=== PATIENT | female | born 1980 | race Two or more races ===

== ENCOUNTER 2017-09-15 14:28 | Emergency (ER) | payer SELFPAY ==
[~2017-09-15] VITALS: Ht 172.7 cm; Wt 90.7 kg
[2017-09-15 15:18] LABS: Basophils # (auto) 0 uL; Basophils % (auto) 0.4 % (0.0-2.0); Eosinophils # (auto) 0.2 uL; Hemoglobin 11.1 g/dL (12.2-16.2); Mean Corpuscular Hemoglobin 23.1 pg (28.0-32.0); Mean Corpuscular Hgb Conc. 31.3 g/dL (32.0-36.0); Neutrophils # (auto) 4.9 uL; Nucleated Red Blood Cells % 0.2 %; White Blood Cell 8.1 10^3/uL (4.4-10.8)
[2017-09-15 15:20] LABS: Eosinophils % (auto) 2.5 % (0.0-7.0); Hematocrit 35.5 % (36.0-46.0); Lymphocytes # (auto) 2.3 uL; Lymphocytes % (auto) 28.8 % (10.0-50.0); Mean Corpuscular Volume 73.6 fL (80.0-100.0); Monocytes # (auto) 0.6 uL; Neutrophils % (auto) 60.3 % (37.0-80.0); Platelet Count (auto) 359 10^3/uL (140-450); Red Blood Cells 4.82 10^6/uL (4.0-5.20)
[2017-09-15 15:21] LABS: Red Cell Distribution Width 20.2 % (11.8-14.3)
[2017-09-15 15:39] LABS: Alanine Aminotransferase 41 U/L (13-56); Albumin 3.8 g/dL (3.4-5.0); Alkaline Phosphatase 97 U/L (45-117); Anion Gap 7 (5-15); Aspartate Aminotransferase 30 U/L (15-37); BUN/Creatinine Ratio 14.7; Bilirubin, Total 0.3 mg/dL (0.2-1.0); Blood Urea Nitrogen 11 mg/dL (7-18); Calcium 8.6 mg/dL (8.5-10.1); Carbon Dioxide 25 mmol/L (21-32); Chloride 107 mmol/L (98-107); GFR African American 113 mL/min; GFR Non-African American 93 mL/min; Glucose 84 mg/dL (74-106); Potassium 4.1 mmol/L (3.5-5.1); Sodium 139 mmol/L (136-145)
[2017-09-15 17:15] VITALS: BP 133/84
== END 2017-09-15 17:38 | disposition home or self-care (01) ==
LOC: ER 14:36
DX: R07.89 Other chest pain (principal); I10 Essential (primary) hypertension; F17.210 Nicotine dependence, cigarettes, uncomplicated
CPT/HCPCS: 36415; 71046; 80053; 84484; 85025; 93005

== ENCOUNTER 2020-05-12 10:44 | Emergency (ER) | payer MEDICAID, OTHER ==
[~2020-05-12] VITALS: Ht 172.7 cm; Wt 97.5 kg
[2020-05-12 10:45] VITALS: BP 157/81
[2020-05-12] MEDS ORDERED: KETOROLAC TROMETH 60MG/2ML VIAL IM ONE (12:30)
== END 2020-05-12 12:46 | disposition home or self-care (01) ==
LOC: ER 10:44
DX: S53.401A Unspecified sprain of right elbow, initial encounter (principal); Y04.8XXA Assault by other bodily force, initial encounter; Y93.89 Activity, other specified; Y92.89 Other specified places as the place of occurrence of the external cause; Y99.8 Other external cause status
CPT/HCPCS: 73080; 96372; 99283; J1885

== ENCOUNTER 2020-06-10 12:49 | Inpatient (IN) | payer MEDICAID ==
[~2020-06-10] VITALS: Ht 172.7 cm; Wt 103.3 kg
[2020-06-10] MEDS ORDERED: PANTOPRAZOLE 40mg/50ML NS AE 50 ML IV ONE (13:15)
[2020-06-10] MEDS ORDERED: PANTOPRAZOLE 40 MG/10 ML VIAL INJ IV ONE (13:15)
[2020-06-10] MEDS ORDERED: PHYTONADIONE (VIT K)10 MG/ML 1ML VIAL SUBCUT ONE (13:45)
[2020-06-10 13:59] LABS: Basophils # (auto) 0 10 ^3/uL (0-0.2); Eosinophils # (auto) 0 10 ^3/uL (0-0.8); Eosinophils % (auto) 0.4 % (0.0-7.0); Lymphocytes # (auto) 2.7 10 ^3/uL (0.4-5.4); Monocytes # (auto) 0.7 10 ^3/uL (0-1.3); Neutrophils # (auto) 6.2 10 ^3/uL (1.6-8.6)
[2020-06-10 14:01] LABS: Basophils % (auto) 0.5 % (0.0-2.0); Hematocrit 20.8 % (36.0-46.0); Mean Corpuscular Hemoglobin 23.1 pg (28.0-32.0); Mean Corpuscular Hgb Conc. 30.8 g/dL (32.0-36.0); Mean Corpuscular Volume 75.1 fL (80.0-100.0); Monocytes % (auto) 7.3 % (0.0-12.0); Neutrophils % (auto) 63.8 % (37.0-80.0); Platelet Count (auto) 180 10^3/uL (140-450); Red Blood Cells 2.77 10^6/uL (4.0-5.20); White Blood Cell 9.7 10^3/uL (4.4-10.8)
[2020-06-10 14:07] LABS: Hemoglobin 6.4 g/dL (12.2-16.2); Red Cell Distribution Width 22.1 % (11.8-14.3)
[2020-06-10 14:14] LABS: INR 1.39 (0.9-1.15); Partial Thromboplastin Time 24.7 sec (23.0-31.2)
[2020-06-10 14:25] LABS: Albumin 2.8 g/dL (3.4-5.0); Calcium 7.9 mg/dL (8.5-10.1); Magnesium 2.1 mg/dL (1.6-2.6); Potassium 3.8 mmol/L (3.5-5.1)
[2020-06-10 14:31] LABS: Bilirubin, Total 1.6 mg/dL (0.2-1.0); Total Protein 7.8 g/dL (6.4-8.2)
[2020-06-10] MEDS ORDERED: ONDANSETRON HCL 4 MG/2 ML VIAL IM ONE (18:00)
[2020-06-10] MEDS ORDERED: PANTOPRAZOLE 40mg/50ML NS AE 50 ML IV PRN (18:00)
[2020-06-10 19:30] VITALS: BP 118/59
[2020-06-10 20:00] VITALS: BP 115/55
[2020-06-10] MEDS ORDERED: MORPHINE SULF INJ 2 MG/ML SYRINGE 1ML IV PRN (20:45)
[2020-06-10] MEDS ORDERED: DOCUSATE SOD 100 MG CAP PO PRN (20:45)
[2020-06-10] MEDS: SODIUM CHLORIDE 0.9% 1,000 ML IV SCH (20:45)
[2020-06-10 21:20] VITALS: BP 116/54
[2020-06-10 21:50] VITALS: BP 108/61
[2020-06-10 22:20] VITALS: BP 114/61
[2020-06-11] VITALS (10 sets, daily range): BP systolic 98–128; BP diastolic 45–75
[2020-06-11] MEDS: ONDANSETRON HCL 4 MG/2 ML VIAL IV PRN ×5 (00:28→16:00)
[2020-06-11 05:19] LABS: Basophils # (auto) 0 10 ^3/uL (0-0.2); Eosinophils # (auto) 0.1 10 ^3/uL (0-0.8); Hematocrit 12.4 % (36.0-46.0); Mean Corpuscular Volume 75.2 fL (80.0-100.0); Monocytes # (auto) 0.4 10 ^3/uL (0-1.3); Nucleated Red Blood Cells % 0.1 %; Red Blood Cells 1.65 10^6/uL (4.0-5.20); White Blood Cell 6.9 10^3/uL (4.4-10.8)
[2020-06-11 05:25] LABS: Basophils % (auto) 0.5 % (0.0-2.0); Eosinophils % (auto) 1.3 % (0.0-7.0); Lymphocytes # (auto) 2.3 10 ^3/uL (0.4-5.4); Lymphocytes % (auto) 34.1 % (10.0-50.0); Mean Corpuscular Hemoglobin 23.8 pg (28.0-32.0); Mean Corpuscular Hgb Conc. 31.7 g/dL (32.0-36.0); Monocytes % (auto) 6.2 % (0.0-12.0); Neutrophils % (auto) 57.9 % (37.0-80.0); Platelet Count (auto) 118 10^3/uL (140-450)
[2020-06-11 05:35] LABS: Hemoglobin 3.9 g/dL (12.2-16.2); Red Cell Distribution Width 22.4 % (11.8-14.3)
[2020-06-11 05:41] LABS: Potassium 3.8 mmol/L (3.5-5.1)
[2020-06-11 05:49] LABS: BUN/Creatinine Ratio 26.1; Calcium 7.3 mg/dL (8.5-10.1)
[2020-06-11] MEDS ORDERED: OCTREOTIDE ACETATE 100 MCG in SODIUM CHL 0.9% 50 ML IV ONE (11:15)
[2020-06-11] MEDS ORDERED: FOLIC ACID 1 MG, MAGNESIUM SULF SDV 50% 8 MEQ, THIAMINE INJ 100 MG in SODIUM CHLORIDE 0... INJ ONE (14:30)
[2020-06-11 14:33] LABS: Basophils # (auto) 0 10 ^3/uL (0-0.2); Eosinophils # (auto) 0 10 ^3/uL (0-0.8); Hemoglobin 7.1 g/dL (12.2-16.2); Monocytes # (auto) 0.5 10 ^3/uL (0-1.3)
[2020-06-11 14:36] LABS: Basophils % (auto) 0.3 % (0.0-2.0); Eosinophils % (auto) 0.4 % (0.0-7.0); Hematocrit 21.9 % (36.0-46.0); Lymphocytes # (auto) 1.9 10 ^3/uL (0.4-5.4); Lymphocytes % (auto) 25.9 % (10.0-50.0); Mean Corpuscular Hemoglobin 26.4 pg (28.0-32.0); Mean Corpuscular Hgb Conc. 32.6 g/dL (32.0-36.0); Monocytes % (auto) 7.3 % (0.0-12.0); Neutrophils # (auto) 4.8 10 ^3/uL (1.6-8.6); Neutrophils % (auto) 66.1 % (37.0-80.0); Platelet Count (auto) 121 10^3/uL (140-450); White Blood Cell 7.3 10^3/uL (4.4-10.8)
[2020-06-11 14:39] LABS: Red Cell Distribution Width 20.6 % (11.8-14.3)
[2020-06-11] MEDS: SODIUM CHLORIDE 0.9% 1,000 ML IV SCH (16:54)
[2020-06-11] MEDS: OCTREOTIDE ACETATE 500 MCG in SODIUM CHL 0.9% 99 ML IV SCH ×2 (18:46→21:15)
[2020-06-11] MEDS: PANTOPRAZOLE 40 MG/10 ML VIAL INJ IV SCH (21:50)
[2020-06-12] VITALS (9 sets, daily range): BP systolic 108–142; BP diastolic 63–76
[2020-06-12] MEDS: SODIUM CHLORIDE 0.9% 1,000 ML IV SCH ×2 (06:03→15:45)
[2020-06-12 07:20] LABS: INR 1.36 (0.9-1.15)
[2020-06-12 07:27] LABS: Basophils # (auto) 0 10 ^3/uL (0-0.2); Monocytes # (auto) 0.4 10 ^3/uL (0-1.3); White Blood Cell 6.6 10^3/uL (4.4-10.8)
[2020-06-12 07:30] LABS: Basophils % (auto) 0.5 % (0.0-2.0); Eosinophils # (auto) 0.2 10 ^3/uL (0-0.8); Eosinophils % (auto) 2.9 % (0.0-7.0); Hematocrit 16.7 % (36.0-46.0); Lymphocytes # (auto) 2.3 10 ^3/uL (0.4-5.4); Mean Corpuscular Hemoglobin 26.6 pg (28.0-32.0); Mean Corpuscular Hgb Conc. 32.6 g/dL (32.0-36.0); Mean Corpuscular Volume 81.8 fL (80.0-100.0); Monocytes % (auto) 5.6 % (0.0-12.0); Neutrophils # (auto) 3.7 10 ^3/uL (1.6-8.6); Nucleated Red Blood Cells % 0.1 %; Platelet Count (auto) 103 10^3/uL (140-450); Red Blood Cells 2.04 10^6/uL (4.0-5.20)
[2020-06-12 07:45] LABS: Hemoglobin 5.4 g/dL (12.2-16.2); Red Cell Distribution Width 20.5 % (11.8-14.3)
[2020-06-12 07:51] LABS: Potassium 4.2 mmol/L (3.5-5.1)
[2020-06-12 08:03] LABS: Albumin 2.2 g/dL (3.4-5.0); BUN/Creatinine Ratio 23.2; Bilirubin, Total 2.8 mg/dL (0.2-1.0); Calcium 7.3 mg/dL (8.5-10.1); Magnesium 2.4 mg/dL (1.6-2.6); Total Protein 5.3 g/dL (6.4-8.2)
[2020-06-12] MEDS ORDERED: fentaNYL CITRATE 100 MCG/2 ML VL ONE (08:06)
[2020-06-12] MEDS ORDERED: ONDANSETRON HCL 4 MG/2 ML VIAL ONE (08:06)
[2020-06-12] MEDS ORDERED: MIDAZOLAM HCL 1MG/1ML-2 ML VIAL ONE (08:06)
[2020-06-12] MEDS ORDERED: PROPOFOL 10 MG/ML 20 ML IV ONE (08:06)
[2020-06-12] MEDS ORDERED: SODIUM CHLORIDE LOCK 10 ML ONE (08:06)
[2020-06-12] MEDS: OCTREOTIDE ACETATE 500 MCG in SODIUM CHL 0.9% 99 ML IV SCH ×2 (10:58→18:28)
[2020-06-12] MEDS: PANTOPRAZOLE 40 MG/10 ML VIAL INJ IV SCH ×2 (10:58→23:01)
[2020-06-12 12:33] LABS: Hematocrit 20.1 % (36.0-46.0)
[2020-06-12 12:37] LABS: Hemoglobin 6.6 g/dL (12.2-16.2)
[2020-06-12] MEDS: FOLIC ACID 1 MG, MAGNESIUM SULF SDV 50% 8 MEQ, THIAMINE INJ 100 MG in SODIUM CHLORIDE 0... INJ SCH (15:09)
[2020-06-13 02:57] VITALS: BP 121/76
[2020-06-13 05:00] VITALS: BP 123/73
[2020-06-13] MEDS: OCTREOTIDE ACETATE 500 MCG in SODIUM CHL 0.9% 99 ML IV SCH ×3 (05:51→23:55)
[2020-06-13 07:26] LABS: Basophils # (auto) 0 10 ^3/uL (0-0.2); Eosinophils # (auto) 0.2 10 ^3/uL (0-0.8); Hemoglobin 7.2 g/dL (12.2-16.2); White Blood Cell 6.5 10^3/uL (4.4-10.8)
[2020-06-13 07:28] LABS: Basophils % (auto) 0.4 % (0.0-2.0); Eosinophils % (auto) 3.1 % (0.0-7.0); Hematocrit 21.3 % (36.0-46.0); Lymphocytes # (auto) 2.3 10 ^3/uL (0.4-5.4); Mean Corpuscular Hemoglobin 28.9 pg (28.0-32.0); Mean Corpuscular Volume 85.1 fL (80.0-100.0); Monocytes # (auto) 0.3 10 ^3/uL (0-1.3); Monocytes % (auto) 5.1 % (0.0-12.0); Neutrophils # (auto) 3.6 10 ^3/uL (1.6-8.6); Neutrophils % (auto) 55.4 % (37.0-80.0); Nucleated Red Blood Cells % 0.2 %; Platelet Count (auto) 101 10^3/uL (140-450); Red Cell Distribution Width 18.2 % (11.8-14.3)
[2020-06-13 07:39] LABS: INR 1.4 (0.9-1.15)
[2020-06-13 07:46] LABS: Albumin 2.1 g/dL (3.4-5.0); Bilirubin, Direct 1.4 mg/dL (0-0.2); Bilirubin, Total 3.4 mg/dL (0.2-1.0); Total Protein 5.2 g/dL (6.4-8.2)
[2020-06-13 09:00] VITALS: BP 122/64
[2020-06-13] MEDS: SODIUM CHLORIDE 0.9% 1,000 ML IV SCH (11:31)
[2020-06-13 13:00] VITALS: BP 119/69
[2020-06-13] MEDS: FOLIC ACID 1 MG, MAGNESIUM SULF SDV 50% 8 MEQ, THIAMINE INJ 100 MG in SODIUM CHLORIDE 0... INJ SCH (14:51)
[2020-06-13 14:58] LABS: Hemoglobin 7.6 g/dL (12.2-16.2)
[2020-06-13 16:45] VITALS: BP 126/67
[2020-06-13 22:00] VITALS: BP 126/86
[2020-06-13] MEDS: PANTOPRAZOLE 40 MG TAB PO SCH (22:09)
[2020-06-14] VITALS (12 sets, daily range): BP systolic 109–133; BP diastolic 58–74
[2020-06-14 05:49] LABS: Basophils # (auto) 0 10 ^3/uL (0-0.2); Lymphocytes # (auto) 1.1 10 ^3/uL (0.4-5.4); Platelet Count (auto) 93 10^3/uL (140-450); White Blood Cell 4.6 10^3/uL (4.4-10.8)
[2020-06-14 05:51] LABS: Basophils % (auto) 0.4 % (0.0-2.0); Eosinophils # (auto) 0.1 10 ^3/uL (0-0.8); Eosinophils % (auto) 3.1 % (0.0-7.0); Lymphocytes % (auto) 23.3 % (10.0-50.0); Mean Corpuscular Hgb Conc. 33.2 g/dL (32.0-36.0); Mean Corpuscular Volume 87.4 fL (80.0-100.0); Monocytes # (auto) 0.4 10 ^3/uL (0-1.3); Neutrophils % (auto) 65.2 % (37.0-80.0); Red Cell Distribution Width 18.8 % (11.8-14.3)
[2020-06-14] MEDS: SODIUM CHLORIDE 0.9% 1,000 ML IV SCH (07:45)
[2020-06-14] MEDS: PANTOPRAZOLE 40 MG TAB PO SCH ×2 (09:01→21:52)
[2020-06-14] MEDS: OCTREOTIDE ACETATE 500 MCG in SODIUM CHL 0.9% 99 ML IV SCH ×3 (09:06→20:20)
[2020-06-14] MEDS ORDERED: GOLYTELY 4L KIT PO ONE (10:15)
[2020-06-14] MEDS: FOLIC ACID 1 MG, MAGNESIUM SULF SDV 50% 8 MEQ, THIAMINE INJ 100 MG in SODIUM CHLORIDE 0... INJ SCH (13:22)
[2020-06-15 00:14] VITALS: BP 125/79
[2020-06-15 01:14] VITALS: BP 118/67
[2020-06-15] MEDS: SODIUM CHLORIDE 0.9% 1,000 ML IV SCH (02:05)
[2020-06-15 05:00] VITALS: BP 115/73
[2020-06-15 07:12] LABS: INR 1.4 (0.9-1.15)
[2020-06-15 07:21] LABS: Hematocrit 26.4 % (36.0-46.0); Hemoglobin 8.8 g/dL (12.2-16.2)
[2020-06-15] MEDS ORDERED: LIDOCAINE 1% HCL (LOCAL ANESTH.) INJ 20ML MDV ONE (07:25)
[2020-06-15 07:28] LABS: Albumin 2.1 g/dL (3.4-5.0); Bilirubin, Direct 1.1 mg/dL (0-0.2); Bilirubin, Total 2.6 mg/dL (0.2-1.0); Total Protein 5.4 g/dL (6.4-8.2)
[2020-06-15] MEDS ORDERED: fentaNYL CITRATE 100 MCG/2 ML VL ONE (08:56)
[2020-06-15] MEDS ORDERED: MIDAZOLAM HCL 1MG/1ML-2 ML VIAL ONE (08:56)
[2020-06-15] MEDS ORDERED: SODIUM CHLORIDE LOCK 10 ML ONE (08:56)
[2020-06-15] MEDS ORDERED: ONDANSETRON HCL 4 MG/2 ML VIAL ONE (08:56)
[2020-06-15] MEDS ORDERED: PROPOFOL 10 MG/ML 20 ML IV ONE (08:56)
[2020-06-15] MEDS ORDERED: HYDROmorphone HCL 2 MG/ML VL IV PRN (10:45)
[2020-06-15] MEDS ORDERED: MORPHINE SULFATE 4 MG/ML SYR/VIAL IV PRN (10:45)
[2020-06-15] MEDS ORDERED: METOCLOPRAMIDE HCL 5MG/ml INJ 2ml VIAL IV PRN (10:45)
[2020-06-15] MEDS: OCTREOTIDE ACETATE 500 MCG in SODIUM CHL 0.9% 99 ML IV SCH ×2 (11:02→22:34)
[2020-06-15] MEDS: PANTOPRAZOLE 40 MG TAB PO SCH ×2 (11:02→21:30)
[2020-06-15] MEDS: FOLIC ACID 1 MG, MAGNESIUM SULF SDV 50% 8 MEQ, THIAMINE INJ 100 MG in SODIUM CHLORIDE 0... INJ SCH (14:44)
[2020-06-15 17:00] VITALS: BP 135/95
[2020-06-15 22:00] VITALS: BP 135/72
[2020-06-16 04:30] VITALS: BP 122/72
[2020-06-16 07:48] LABS: Albumin 2.1 g/dL (3.4-5.0); Magnesium 1.9 mg/dL (1.6-2.6); Potassium 3.8 mmol/L (3.5-5.1)
[2020-06-16 07:51] LABS: Bilirubin, Direct 0.9 mg/dL (0-0.2); Bilirubin, Total 2.1 mg/dL (0.2-1.0); Total Protein 5.4 g/dL (6.4-8.2)
[2020-06-16 08:04] LABS: Basophils # (auto) 0 10 ^3/uL (0-0.2); Basophils % (auto) 0.4 % (0.0-2.0); Eosinophils # (auto) 0.1 10 ^3/uL (0-0.8); Eosinophils % (auto) 1.5 % (0.0-7.0); Hematocrit 29.4 % (36.0-46.0); Hemoglobin 8.8 g/dL (12.2-16.2); Lymphocytes # (auto) 1.5 10 ^3/uL (0.4-5.4); Lymphocytes % (auto) 35.7 % (10.0-50.0); Mean Corpuscular Hemoglobin 28.6 pg (28.0-32.0); Mean Corpuscular Volume 95.2 fL (80.0-100.0); Monocytes # (auto) 0.5 10 ^3/uL (0-1.3); Monocytes % (auto) 11.1 % (0.0-12.0); Neutrophils # (auto) 2.2 10 ^3/uL (1.6-8.6); Neutrophils % (auto) 51.3 % (37.0-80.0); Nucleated Red Blood Cells % 0.1 %; Platelet Count (auto) 76 10^3/uL (140-450); Red Blood Cells 3.09 10^6/uL (4.0-5.20); Red Cell Distribution Width 19.2 % (11.8-14.3); White Blood Cell 4.2 10^3/uL (4.4-10.8)
[2020-06-16 08:42] VITALS: BP 121/70
[2020-06-16] MEDS: PANTOPRAZOLE 40 MG TAB PO SCH (09:25)
[2020-06-16 13:00] VITALS: BP 118/73
== END 2020-06-16 14:50 | disposition home or self-care (01) | DRG 280 ==
LOC: ER 12:49 → TELE 20:33 → TELE-WESTW 06-11 11:29
PROVIDERS: ADMIT Hospitalist; ATTEND Internal Medicine
PROC: 30233K1 Transfusion of Nonautologous Frozen Plasma into Peripheral Vein, Percutaneous Approach (ICD-10-PCS; 2020-06-10)
PROC: 30233N1 Transfusion of Nonautologous Red Blood Cells into Peripheral Vein, Percutaneous Approach (ICD-10-PCS; principal; 2020-06-11)
PROC: 06L38CZ Occlusion of Esophageal Vein with Extraluminal Device, Via Natural or Artificial Opening Endoscopic (ICD-10-PCS; 2020-06-12)
PROC: 0DJD8ZZ Inspection of Lower Intestinal Tract, Via Natural or Artificial Opening Endoscopic (ICD-10-PCS; 2020-06-15)
DX: K70.31 Alcoholic cirrhosis of liver with ascites (principal); I10 Essential (primary) hypertension; F17.210 Nicotine dependence, cigarettes, uncomplicated; F10.10 Alcohol abuse, uncomplicated; I85.11 Secondary esophageal varices with bleeding; E66.9 Obesity, unspecified; K76.6 Portal hypertension; Z20.822 Contact with and (suspected) exposure to COVID-19; D62 Acute posthemorrhagic anemia; D68.4 Acquired coagulation factor deficiency; D69.6 Thrombocytopenia, unspecified; K31.89 Other diseases of stomach and duodenum; K64.4 Residual hemorrhoidal skin tags; K64.8 Other hemorrhoids; Z68.30 Body mass index [BMI] 30.0-30.9, adult; E44.0 Moderate protein-calorie malnutrition
CPT/HCPCS: 36415; 43244; 45378; 71045; 74176; 80048; 80053; 80061; 80076; 82140; 82150; 83690; 83735; 84132; 84702; 85014; 85018; 85025; 85610; 85730; 86850; 86900; 86901; 86920; 87426; C9113; G0378; J2001; J2250; J2405; J2704; J3430

== ENCOUNTER 2020-06-26 14:22 | Inpatient (IN) | payer MEDICAID ==
[~2020-06-26] VITALS: Ht 172.7 cm; Wt 91.9 kg
[2020-06-26 15:57] LABS: Basophils # (auto) 0 10 ^3/uL (0-0.2); Hemoglobin 7.3 g/dL (12.2-16.2); Mean Corpuscular Volume 99.9 fL (80.0-100.0); Monocytes # (auto) 0.5 10 ^3/uL (0-1.3); White Blood Cell 5.8 10^3/uL (4.4-10.8)
[2020-06-26 15:59] LABS: Basophils % (auto) 0.1 % (0.0-2.0); Eosinophils # (auto) 0.1 10 ^3/uL (0-0.8); Eosinophils % (auto) 0.9 % (0.0-7.0); Hematocrit 22.6 % (36.0-46.0); Lymphocytes # (auto) 1.7 10 ^3/uL (0.4-5.4); Mean Corpuscular Hemoglobin 32.2 pg (28.0-32.0); Mean Corpuscular Hgb Conc. 32.2 g/dL (32.0-36.0); Monocytes % (auto) 8.5 % (0.0-12.0); Neutrophils # (auto) 3.5 10 ^3/uL (1.6-8.6); Neutrophils % (auto) 60.5 % (37.0-80.0); Nucleated Red Blood Cells % 0.1 %; Red Blood Cells 2.26 10^6/uL (4.0-5.20)
[2020-06-26 16:00] LABS: Red Cell Distribution Width 34.7 % (11.8-14.3)
[2020-06-26 16:16] LABS: Albumin 2.2 g/dL (3.4-5.0); Calcium 7.8 mg/dL (8.5-10.1); Potassium 3.9 mmol/L (3.5-5.1)
[2020-06-26 16:20] LABS: BUN/Creatinine Ratio 10.1; Total Protein 6.7 g/dL (6.4-8.2)
[2020-06-26 16:29] LABS: INR 1.17 (0.9-1.15); Partial Thromboplastin Time 27.3 sec (23.0-31.2)
[2020-06-26] MEDS ORDERED: HYDROcodone-ACET 5/325MG TAB PO PRN (17:30)
[2020-06-26] MEDS ORDERED: NITROGLYCERIN 0.4 MG SL TAB SL PRN (17:30)
[2020-06-26] MEDS ORDERED: MORPHINE SULFATE INJECTION 2 MG/ML SYRG IV PRN ×2 (17:30)
[2020-06-26] MEDS ORDERED: ONDANSETRON HCL 4 MG/2 ML VIAL IV PRN (17:30)
[2020-06-26] MEDS ORDERED: ACETAMINOPHEN 500 MG TAB PO PRN (17:30)
[2020-06-26] MEDS: SPIRONOLACTONE 25 MG TAB PO SCH (18:52)
[2020-06-26] MEDS: OCTREOTIDE ACETATE 500 MCG in SODIUM CHL 0.9% 99 ML IV SCH (19:44)
[2020-06-26] MEDS: PROPRANOLOL HCL 20 MG TAB PO SCH (22:00)
[2020-06-26] MEDS: PANTOPRAZOLE 40 MG/10 ML VIAL INJ IV SCH (22:17)
[2020-06-26] MEDS: LACTULOSE 20Gm/30ML SOLN PO SCH (22:17)
[2020-06-26 22:39] LABS: Urine Bacteria NONE SEEN /hpf (None Seen); Urine Blood 1+ /uL (Negative); Urine Mucus FEW (None Seen); Urine Specific Gravity 1.013 (1.001-1.035); Urine WBC 36 /hpf (0 - 5); Urine WBC Clumps PRESENT /hpf (None Seen)
[2020-06-27] VITALS (15 sets, daily range): BP systolic 93–140; BP diastolic 55–79
[2020-06-27] MEDS: SPIRONOLACTONE 25 MG TAB PO SCH ×2 (05:55→18:15)
[2020-06-27] MEDS: OCTREOTIDE ACETATE 500 MCG in SODIUM CHL 0.9% 99 ML IV SCH ×2 (09:37→14:15)
[2020-06-27] MEDS: FUROSEMIDE 20 MG/2 ML VIAL IV SCH (09:37)
[2020-06-27] MEDS: LACTULOSE 20Gm/30ML SOLN PO SCH ×2 (09:38→22:00)
[2020-06-27] MEDS: PANTOPRAZOLE 40 MG/10 ML VIAL INJ IV SCH ×2 (09:38→22:00)
[2020-06-27] MEDS: PROPRANOLOL HCL 20 MG TAB PO SCH ×2 (09:38→22:00)
[2020-06-27 10:10] LABS: BUN/Creatinine Ratio 9.6; Calcium 7.2 mg/dL (8.5-10.1); Potassium 4.2 mmol/L (3.5-5.1)
[2020-06-27 12:10] LABS: Basophils # (auto) 0 10 ^3/uL (0-0.2); Eosinophils # (auto) 0.1 10 ^3/uL (0-0.8); Mean Corpuscular Hgb Conc. 31.5 g/dL (32.0-36.0); Monocytes # (auto) 0.3 10 ^3/uL (0-1.3); Neutrophils # (auto) 2.7 10 ^3/uL (1.6-8.6); Red Blood Cells 1.88 10^6/uL (4.0-5.20); White Blood Cell 4.5 10^3/uL (4.4-10.8)
[2020-06-27 12:12] LABS: Basophils % (auto) 0.2 % (0.0-2.0); Hematocrit 19.3 % (36.0-46.0); Lymphocytes # (auto) 1.3 10 ^3/uL (0.4-5.4); Lymphocytes % (auto) 29.9 % (10.0-50.0); Mean Corpuscular Hemoglobin 32.3 pg (28.0-32.0); Mean Corpuscular Volume 102.6 fL (80.0-100.0); Monocytes % (auto) 7.3 % (0.0-12.0); Neutrophils % (auto) 60.6 % (37.0-80.0); Nucleated Red Blood Cells % 0.2 %
[2020-06-27 12:43] LABS: Red Cell Distribution Width 35.1 % (11.8-14.3)
[2020-06-27 12:44] LABS: Hemoglobin 6.1 g/dL (12.2-16.2)
[2020-06-27] MEDS ORDERED: CEFTRIAXONE SODIUM 2 GM in D5W 5% 50 ML IV ONE (14:30)
[2020-06-28] VITALS (12 sets, daily range): BP systolic 93–147; BP diastolic 55–75
[2020-06-28] MEDS: OCTREOTIDE ACETATE 500 MCG in SODIUM CHL 0.9% 99 ML IV SCH ×3 (00:15→20:15)
[2020-06-28] MEDS: SPIRONOLACTONE 25 MG TAB PO SCH ×2 (06:00→18:05)
[2020-06-28 06:39] LABS: Basophils # (auto) 0 10 ^3/uL (0-0.2); Eosinophils # (auto) 0.1 10 ^3/uL (0-0.8); Lymphocytes # (auto) 1.3 10 ^3/uL (0.4-5.4); Monocytes # (auto) 0.3 10 ^3/uL (0-1.3); Neutrophils # (auto) 2.3 10 ^3/uL (1.6-8.6); Nucleated Red Blood Cells % 0.1 %
[2020-06-28 06:41] LABS: Basophils % (auto) 0.3 % (0.0-2.0); Eosinophils % (auto) 1.9 % (0.0-7.0); Hematocrit 23.2 % (36.0-46.0); Hemoglobin 7.7 g/dL (12.2-16.2); Lymphocytes % (auto) 33.3 % (10.0-50.0); Mean Corpuscular Hemoglobin 31.8 pg (28.0-32.0); Mean Corpuscular Hgb Conc. 33.1 g/dL (32.0-36.0); Monocytes % (auto) 7.5 % (0.0-12.0); Red Blood Cells 2.41 10^6/uL (4.0-5.20)
[2020-06-28 06:56] LABS: Red Cell Distribution Width 33.1 % (11.8-14.3)
[2020-06-28 06:57] LABS: Potassium 4.1 mmol/L (3.5-5.1)
[2020-06-28 07:04] LABS: Albumin 1.9 g/dL (3.4-5.0); BUN/Creatinine Ratio 8.6; Calcium 7.6 mg/dL (8.5-10.1); Total Protein 5.6 g/dL (6.4-8.2)
[2020-06-28] MEDS: PANTOPRAZOLE 40 MG/10 ML VIAL INJ IV SCH ×2 (09:23→22:19)
[2020-06-28] MEDS: LACTULOSE 20Gm/30ML SOLN PO SCH ×2 (09:23→22:19)
[2020-06-28] MEDS: FUROSEMIDE 20 MG/2 ML VIAL IV SCH (09:24)
[2020-06-28] MEDS: CEFTRIAXONE SODIUM 2 GM in D5W 5% 50 ML IV SCH (09:24)
[2020-06-28] MEDS: PROPRANOLOL HCL 20 MG TAB PO SCH ×2 (09:25→22:00)
[2020-06-29 05:00] VITALS: BP 113/65
[2020-06-29] MEDS: SPIRONOLACTONE 25 MG TAB PO SCH (06:03)
[2020-06-29] MEDS: OCTREOTIDE ACETATE 500 MCG in SODIUM CHL 0.9% 99 ML IV SCH (06:04)
[2020-06-29 08:01] VITALS: BP 97/57
[2020-06-29] MEDS: PANTOPRAZOLE 40 MG/10 ML VIAL INJ IV SCH (09:27)
[2020-06-29] MEDS: FUROSEMIDE 20 MG/2 ML VIAL IV SCH (09:27)
[2020-06-29] MEDS: CEFTRIAXONE SODIUM 2 GM in D5W 5% 50 ML IV SCH (09:28)
[2020-06-29] MEDS: PROPRANOLOL HCL 20 MG TAB PO SCH (09:30)
[2020-06-29] MEDS: LACTULOSE 20Gm/30ML SOLN PO SCH (09:30)
[2020-06-29 12:00] VITALS: BP 98/59
[2020-06-29] MEDS ORDERED: ERGO20002 PO (14:14)
[2020-06-29] MEDS ORDERED: SPIR25TA8 PO (14:14)
[2020-06-29] MEDS ORDERED: FURO1TAB33 PO (14:14)
[2020-06-29] MEDS ORDERED: ASCO500C4 PO (14:14)
[2020-06-29] MEDS ORDERED: PANT40TA2 PO (14:14)
[2020-06-29 14:48] VITALS: BP 97/57
[2020-06-29 16:01] VITALS: BP 94/54
== END 2020-06-29 16:00 | disposition home or self-care (01) | DRG 663 ==
LOC: ER 14:22 → TELE 14:23 → TELE-WESTW 06-27 03:53
PROVIDERS: ADMIT Nurse Practitioner Acute Care; ATTEND Internal Medicine Pulmonary Disease
PROC: 0W9G3ZZ Drainage of Peritoneal Cavity, Percutaneous Approach (ICD-10-PCS; principal; 2020-06-27)
PROC: 30233N1 Transfusion of Nonautologous Red Blood Cells into Peripheral Vein, Percutaneous Approach (ICD-10-PCS; 2020-06-27)
PROC: 30233K1 Transfusion of Nonautologous Frozen Plasma into Peripheral Vein, Percutaneous Approach (ICD-10-PCS; 2020-06-27)
DX: D62 Acute posthemorrhagic anemia (principal); K70.31 Alcoholic cirrhosis of liver with ascites; K76.6 Portal hypertension; K92.2 Gastrointestinal hemorrhage, unspecified; U07.1 COVID-19; J12.82 Pneumonia due to coronavirus disease 2019; K72.90 Hepatic failure, unspecified without coma; E43 Unspecified severe protein-calorie malnutrition; D69.6 Thrombocytopenia, unspecified; I10 Essential (primary) hypertension; F17.210 Nicotine dependence, cigarettes, uncomplicated; K31.89 Other diseases of stomach and duodenum; Z79.899 Other long term (current) drug therapy; Z80.0 Family history of malignant neoplasm of digestive organs; Z82.49 Family history of ischemic heart disease and other diseases of the circulatory system; Z83.3 Family history of diabetes mellitus; Z68.33 Body mass index [BMI] 33.0-33.9, adult; K65.2 Spontaneous bacterial peritonitis
CPT/HCPCS: 10022; 36415; 76700; 76942; 80048; 80053; 81001; 82140; 82270; 83615; 83986; 85025; 85610; 85730; 86850; 86870; 86900; 86901; 86902; 86920; 86922; 87081; 87205; 87426; 89051; C9113; G0378; J0696; J7060

== ENCOUNTER 2021-06-26 07:39 | Inpatient (IN) | payer MEDICAID ==
[~2021-06-26] VITALS: Ht 172.7 cm; Wt 85.9 kg
[~2021-06-26 07:39] MED LIST: ASCO500C4 PO; ERGO20002 PO; FURO1TAB33 PO; PANT40TA2 PO; SPIR25TA8 PO
[2021-06-26 09:20] LABS: Basophils # (auto) 0 10 ^3/uL (0-0.2); Basophils % (auto) 0.3 % (0.0-2.0); Eosinophils # (auto) 0.1 10 ^3/uL (0-0.8); Eosinophils % (auto) 1.9 % (0.0-7.0); Hematocrit 42.5 % (36.0-46.0); Hemoglobin 14.7 g/dL (12.2-16.2); Lymphocytes # (auto) 1.8 10 ^3/uL (0.4-5.4); Lymphocytes % (auto) 25.1 % (10.0-50.0); Mean Corpuscular Hemoglobin 33.4 pg (28.0-32.0); Mean Corpuscular Hgb Conc. 34.7 g/dL (32.0-36.0); Mean Corpuscular Volume 96.4 fL (80.0-100.0); Monocytes # (auto) 0.4 10 ^3/uL (0-1.3); Monocytes % (auto) 6.1 % (0.0-12.0); Neutrophils # (auto) 4.7 10 ^3/uL (1.6-8.6); Neutrophils % (auto) 66.6 % (37.0-80.0); Nucleated Red Blood Cells % 0.1 %; Red Blood Cells 4.41 10^6/uL (4.0-5.20); Red Cell Distribution Width 13.5 % (11.8-14.3)
[2021-06-26 09:35] LABS: Albumin 3.5 g/dL (3.4-5.0); BUN/Creatinine Ratio 21.1; Potassium 4.4 mmol/L (3.5-5.1)
[2021-06-26 09:38] LABS: Bilirubin, Total 1.7 mg/dL (0.2-1.0); Total Protein 7.3 g/dL (6.4-8.2)
[2021-06-26 11:24] LABS: Urine Bacteria NONE SEEN /hpf (None Seen); Urine Blood Negative /uL (Negative); Urine Mucus FEW (None Seen); Urine Specific Gravity 1.024 (1.001-1.035); Urine WBC 41 /hpf (0 - 5)
[2021-06-26 14:02] LABS: Albumin 3.7 g/dL (3.4-5.0); Calcium 9.6 mg/dL (8.5-10.1); Potassium 4.7 mmol/L (3.5-5.1)
[2021-06-26 14:06] LABS: BUN/Creatinine Ratio 20.9; Bilirubin, Total 2.4 mg/dL (0.2-1.0); Total Protein 7.7 g/dL (6.4-8.2)
[2021-06-26] MEDS ORDERED: cefTRIAXone 1GM/50ML D5W 50 ML IV ONE (16:00)
[2021-06-26] MEDS ORDERED: ONDANSETRON HCL 4 MG/2 ML VIAL IV ONE (16:00)
[2021-06-26] MEDS ORDERED: MORPHINE SULFATE INJECTION 2 MG/ML SYRG IV PRN (18:30)
[2021-06-26] MEDS ORDERED: NITROGLYCERIN 0.4 MG SL TAB SL PRN (18:30)
[2021-06-26] MEDS ORDERED: MORPHINE SULFATE 4 MG/ML SYR/VIAL IV PRN (18:30)
[2021-06-26] MEDS: SODIUM CHLORIDE 0.9% 1,000 ML IV SCH (18:31)
[2021-06-26] MEDS: metroNIDAZOLE 500MG/100ML 100 ML IV SCH (21:51)
[2021-06-26 23:56] VITALS: BP 105/50
[2021-06-27 00:10] VITALS: BP 102/63
[2021-06-27] MEDS: SODIUM CHLORIDE 0.9% 1,000 ML IV SCH (03:50)
[2021-06-27] MEDS: traMADol HCL 50 MG TAB PO PRN ×2 (03:55→11:27)
[2021-06-27 05:47] LABS: Basophils # (auto) 0 10 ^3/uL (0-0.2); Basophils % (auto) 0.4 % (0.0-2.0); Eosinophils # (auto) 0.2 10 ^3/uL (0-0.8); Eosinophils % (auto) 3.5 % (0.0-7.0); Hematocrit 36.7 % (36.0-46.0); Hemoglobin 13.1 g/dL (12.2-16.2); Lymphocytes # (auto) 2.3 10 ^3/uL (0.4-5.4); Lymphocytes % (auto) 42.5 % (10.0-50.0); Mean Corpuscular Hemoglobin 33.9 pg (28.0-32.0); Mean Corpuscular Hgb Conc. 35.8 g/dL (32.0-36.0); Mean Corpuscular Volume 94.7 fL (80.0-100.0); Monocytes # (auto) 0.4 10 ^3/uL (0-1.3); Monocytes % (auto) 6.6 % (0.0-12.0); Neutrophils # (auto) 2.5 10 ^3/uL (1.6-8.6); Nucleated Red Blood Cells % 0.2 %; Red Blood Cells 3.88 10^6/uL (4.0-5.20); Red Cell Distribution Width 13.4 % (11.8-14.3); White Blood Cell 5.4 10^3/uL (4.4-10.8)
[2021-06-27 06:00] VITALS: BP 101/56
[2021-06-27 06:11] LABS: BUN/Creatinine Ratio 23.4; Calcium 8.8 mg/dL (8.5-10.1)
[2021-06-27] MEDS: metroNIDAZOLE 500MG/100ML 100 ML IV SCH ×3 (06:29→21:25)
[2021-06-27 06:32] LABS: Bilirubin, Total 2.1 mg/dL (0.2-1.0); Total Protein 6.3 g/dL (6.4-8.2)
[2021-06-27 09:00] VITALS: BP 102/49
[2021-06-27] MEDS: ENOXAPARIN SOD 40 MG/0.4 ML SYRINGE SC SCH (10:00)
[2021-06-27] MEDS ORDERED: cefTRIAXone 1GM/50ML D5W 50 ML IV ONE (11:30)
[2021-06-27] MEDS ORDERED: traMADol HCL 50 MG TAB PO PRN (12:00)
[2021-06-27 13:00] VITALS: BP 95/56
[2021-06-27 17:00] VITALS: BP 103/63
[2021-06-27] MEDS: PANTOPRAZOLE 40 MG/10 ML VIAL INJ IV SCH (21:26)
[2021-06-27 22:00] VITALS: BP 104/68
[2021-06-28] MEDS: SODIUM CHLORIDE 0.9% 1,000 ML IV SCH (03:50)
[2021-06-28 05:00] VITALS: BP 102/59
[2021-06-28] MEDS: metroNIDAZOLE 500MG/100ML 100 ML IV SCH ×2 (06:43→14:00)
[2021-06-28 08:37] VITALS: BP 94/48
[2021-06-28] MEDS ORDERED: cefTRIAXone 1GM/50ML D5W 50 ML IV SCH (09:00)
[2021-06-28] MEDS: PANTOPRAZOLE 40 MG/10 ML VIAL INJ IV SCH (10:00)
[2021-06-28] MEDS: ENOXAPARIN SOD 40 MG/0.4 ML SYRINGE SC SCH (10:00)
[2021-06-28] MEDS ORDERED: METR500T PO (11:07)
[2021-06-28] MEDS ORDERED: ALPR1TAB2 PO ×2 (11:07)
[2021-06-28] MEDS ORDERED: PANT40T PO (11:07)
[2021-06-28 13:02] VITALS: BP 112/73
[2021-07-01 09:50] LABS: Hepatitis B Surface Antibody Positive (Negative)
[2021-07-01 10:23] LABS: Hepatitis A Total Antibody Positive (Negative)
[2021-07-01 15:33] LABS: Hepatitis C Antibody Negative (Negative)
== END 2021-06-28 16:17 | disposition home or self-care (01) ==
LOC: ER 07:39 → OVERFLOW 18:23 → WEST WING 23:52
PROVIDERS: ADMIT Internal Medicine; ATTEND Family Medicine
DX: K74.60 Unspecified cirrhosis of liver (principal); K76.6 Portal hypertension; N39.0 Urinary tract infection, site not specified; R11.2 Nausea with vomiting, unspecified; K31.89 Other diseases of stomach and duodenum; K52.9 Noninfective gastroenteritis and colitis, unspecified; K80.20 Calculus of gallbladder without cholecystitis without obstruction; F17.210 Nicotine dependence, cigarettes, uncomplicated; Z20.822 Contact with and (suspected) exposure to COVID-19; I10 Essential (primary) hypertension; G43.909 Migraine, unspecified, not intractable, without status migrainosus; F41.9 Anxiety disorder, unspecified; Z80.0 Family history of malignant neoplasm of digestive organs; Z83.3 Family history of diabetes mellitus; Z82.49 Family history of ischemic heart disease and other diseases of the circulatory system
CPT/HCPCS: 36415; 71045; 74176; 80053; 81001; 82105; 82140; 82378; 83690; 85025; 86301; 86704; 86706; 86708; 86803; 87086; 87088; 87186; 87340; 87426; 96365; 96375; C9113; G0378; J0696; J2405; J3490